=== PATIENT | female | born 2000 | race Two or more races ===

== ENCOUNTER 2024-07-11 14:54 | Emergency (ER) | payer OTHER ==
[~2024-07-11] VITALS: Ht 152.4 cm; Wt 80.7 kg
[2024-07-11] MEDS ORDERED: DEXAMETHASONE SODIUM PHOSPHATE 4 MG/ML VIAL IM STA (16:01)
[2024-07-11] MEDS ORDERED: DOXYCYCLINE HYCLATE 100MG IV STA (16:01)
[2024-07-11] MEDS ORDERED: KETOROLAC TROMETHAMINE 60 MG VIAL IM STA (16:04)
[2024-07-11] MEDS ORDERED: CLEOCIN HCL75 MG PO (16:28)
[2024-07-11] MEDS ORDERED: CLINDAMYCIN HC150 MG PO (16:30)
== END 2024-07-11 21:56 | disposition home or self-care (01) ==
LOC: ER 14:56
DX: N75.0 Cyst of Bartholin's gland (principal); Z91.013 Allergy to seafood